=== PATIENT | female | born 1985 | race Caucasian/White ===

== ENCOUNTER 2024-03-24 15:12 | Emergency (ER) | payer OTHER ==
[~2024-03-24] VITALS: Ht 154.9 cm; Wt 45.4 kg
[2024-03-24 15:15] VITALS: RESP 22; TEMP 98.3; O2SAT 98
[2024-03-24 15:42] LABS: BASOPHILS % (AUTO) 0.6 % (0.0-2.0); EOSINOPHILS # (AUTO) 0.1 K/uL (0.0-0.4); EOSINOPHILS % (AUTO) 1.4 % (0.0-4.0); HEMATOCRIT 35.4 % (36-48); LYMPHOCYTES # (AUTO) 1.8 K/uL (1.0-5.5); LYMPHOCYTES % (AUTO) 28.3 % (20.5-51.5); MEAN CORPUSCULAR HEMOGLOBIN 30 pg (27-31); MEAN CORPUSCULAR HGB CONC 34 % (32-36); MEAN CORPUSCULAR VOLUME 87 fL (79.0-98.0); MONOCYTES # (AUTO) 0.5 K/uL (0.0-1.0); MONOCYTES % (AUTO) 7.5 % (1.7-9.3); NEUTROPHILS # (AUTO) 3.9 K/uL (1.8-7.7); NEUTROPHILS % (AUTO) 62.2 % (40.0-70.0); PLATELET COUNT (AUTO) 273 K/uL (130-430); RED BLOOD CELL COUNT(AUTO) 4.07 MIL/uL (4.2-6.2); RED CELL DISTRIBUTION WIDTH 14.5 % (9.0-15.0); WHITE BLOOD COUNT (AUTO) 6.3 K/uL (4.8-10.8)
[2024-03-24] MEDS: NACL 0.9% 1,000 ML IV ONE (16:03)
[2024-03-24] MEDS: ONDANSETRON HCL 4 MG/2 ML VIAL IVP ONE (16:08)
[2024-03-24] MEDS: ACETAMINOPHEN 500 MG TABLET PO ONE (16:08)
[2024-03-24 16:16] LABS: CALCIUM 8.7 mg/dL (8.4-11.0); CREATININE 0.66 mg/dL (0.55-1.30); POTASSIUM 3.8 mmol/L (3.5-5.1)
[2024-03-24 17:05] VITALS: BP_SYST 105; PULSE 79; RESP 18; TEMP 97.9; O2SAT 100
== END 2024-03-24 17:04 | disposition home or self-care (01) ==
LOC: SED 15:12
DX: R56.9 Unspecified convulsions (principal); R51.9 Headache, unspecified; R11.0 Nausea; Z79.899 Other long term (current) drug therapy
CPT/HCPCS: 99285; 96374; 70450; 71045; 96361; 80048; 80156; 85025; 36415; 81025; J2405; J7030

== ENCOUNTER 2024-04-23 12:18 | Emergency (ER) | payer OTHER ==
[~2024-04-23] VITALS: Ht 157.5 cm; Wt 40.4 kg
[2024-04-23 12:27] VITALS: BP_SYST 128; PULSE 71; RESP 18; TEMP 98.3; O2SAT 100
[2024-04-23] MEDS: IBUPROFEN 600 MG TABLET PO ONE (12:54)
[2024-04-23] MEDS: HYDROcodone/ACETAMIN 10-325 MG TAB PO ONE (12:59)
[2024-04-23] MEDS ORDERED: IBUP-1969 PO (14:11)
[2024-04-23] MEDS ORDERED: HYDR-3917 PO (14:11)
[2024-04-23 14:24] VITALS: BP_SYST 105; PULSE 71; RESP 18; TEMP 98.3; O2SAT 100
== END 2024-04-23 14:26 | disposition home or self-care (01) ==
LOC: SED 12:18
DX: S83.8X1A Sprain of other specified parts of right knee, initial encounter (principal); X50.1XXA Overexertion from prolonged static or awkward postures, initial encounter; Y93.89 Activity, other specified; Y92.89 Other specified places as the place of occurrence of the external cause; Y99.8 Other external cause status
CPT/HCPCS: 73564; 99283